=== PATIENT | female | born 1955 | race Caucasian/White ===

== ENCOUNTER → 2019-02-15 | Outpatient (CLI) | payer MEDICARE ==
[~2019-02-15] MED LIST: CEPH500 PO; CIPR500 PO; HYDACE5 PO
[2019-02-16 14:06] LABS: HPV 16 Negative (Negative); HPV 18 Negative (Negative); HPV OTHER HR TYPES Negative (Negative)
== END ==
LOC: LAB SHORT 13:06 → LAB 13:06
PROVIDERS: Nurse Practitioner Family
DX: Z12.4 Encounter for screening for malignant neoplasm of cervix (principal)
CPT/HCPCS: 87624; G0145

== ENCOUNTER 2020-06-27 16:58 | Inpatient (IN) | payer MEDICARE ==
[~2020-06-27] VITALS: Ht 170.2 cm; Wt 106.2 kg
[2020-06-27 17:34] LABS: BASOPHILS ABSOLUTE AUTO 0.04 K/mm3 (0.00-0.23); BASOPHILS PERCENT AUTO 0 % (0-2); EOSINOPHILS PERCENT AUTO 0 % (0-6); Hematocrit 43.8 % (33.0-51.0); Hemoglobin 14.1 g/dL (11.5-16.0); IMMATURE GRAN ABSOLUTE AUTO 0.04 K/mm3 (0.00-0.10); IMMATURE GRAN PERCENT AUTO 0 % (0-1); LYMPHOCYTES ABSOLUTE AUTO 3.27 K/mm3 (0.84-5.20); LYMPHOCYTES PERCENT AUTO 31 % (21-46); MONOCYTES ABSOLUTE AUTO 0.77 K/mm3 (0.16-1.47); MONOCYTES PERCENT AUTO 7 % (4-13); Mean Corpuscular HGB 28.2 pg (26.0-34.0); Mean Corpuscular HGB Conc 32.2 g/dL (31.5-36.5); Mean Corpuscular Volume 88 fL (80-100); Mean Platelet Volume 10.3 fL (9.1-12.4); NEUTROPHILS ABSOLUTE AUTO 6.34 K/mm3 (1.96-9.15); NEUTROPHILS PERCENT AUTO 61 % (41-73); Platelet Count 340 K/mm3 (150-400); RDW Coefficient Variation 13.4 % (11.7-14.2); RDW Standard Deviation 42.8 fL (35.1-46.3); White Blood Cell Count 10.46 K/mm3 (4.00-11.30)
[2020-06-27 17:35] LABS: Calcium, Ionized (POC) 1.18 mmol/L (1.10-1.46); Chloride (POC) 103 mmol/L (98-108); Creatinine (POC) 1.1 mg/dL (0.6-1.0); Glucose (ISTAT POC) 153 mg/dL (70-99); Potassium (POC) 3.5 mmol/L (3.5-5.5); Sodium (POC) 138 mmol/L (135-148); Total CO2 (POC) 21 mmol/L (21-32)
[2020-06-27 17:48] LABS: International Normalized Ratio 0.95; Prothrombin Time Results 10.2 Sec (9.7-11.5)
[2020-06-27 17:59] LABS: Alanine Aminotransfer (ALT/SGP 34 U/L (12-78); Albumin, Blood 3.9 g/dL (3.4-5.0); Albumin/Globulin Ratio 1.1 (0.8-1.8); Alk Phos 119 U/L (50-136); Anion Gap 11 mmol/L (6-16); Aspartate Aminotrans (AST/SGOT 19 U/L (12-37); Bilirubin, Total 0.4 mg/dL (0.1-1.0); Blood Urea Nitrogen 22 mg/dL (8-24); CO2, Blood 24 mmol/L (21-32); Calcium, Blood 9.6 mg/dL (8.5-10.1); Chloride, Blood 107 mmol/L (98-108); Creatinine, Blood 1.05 mg/dL (0.40-1.00); Globulin, Blood 3.4 g/dL (2.2-4.0); Glomerular Filtration Rate 56 (60-); Glucose, Blood 155 mg/dL (70-99); Potassium, Blood 3.6 mmol/L (3.5-5.5); Sodium, Blood 142 mmol/L (136-145); Total Protein, Blood 7.3 g/dL (6.4-8.2); Troponin I <0.015 ng/mL (0.000-0.040)
--- NOTE | 2020-06-27 21:00 | NUR ---
PT TO ICU 13 VIA GURNEY WITH SALES ADMINISTRATOR RN @ [id number], PT ALERT AND ORIENTEDx4, REPORTS A MILD 2/10 CHEST PAIN WHICH IS IMPROVED FROM 10/10 CP ON ARRIVAL TO ED. PT DENIES SOB, O2 SATURATIONS>90% ON RA. TR BAND IN PLACE TO R RADIAL SITE, SITE NON TENDER AND NO HEMATOMA NOTED. CALL PLACED TO DR BRANDON, CLARIFIED LOVENOX AND BRILINTA ORDERS. PT DENIES ANY SIGNIFICANT HEALTH HISTORY AND DOES NOT TAKE ANY MEDICATIONS ON A DAILY/REGULAR BASIS. DR BRANDON TO ROOM, SEE NEW LASIX ORDER.
[2020-06-28 01:40] LABS: BASOPHILS ABSOLUTE AUTO 0.04 K/mm3 (0.00-0.23); BASOPHILS PERCENT AUTO 0 % (0-2); EOSINOPHILS PERCENT AUTO 0 % (0-6); Hematocrit 44.6 % (33.0-51.0); Hemoglobin 14.3 g/dL (11.5-16.0); IMMATURE GRAN ABSOLUTE AUTO 0.08 K/mm3 (0.00-0.10); IMMATURE GRAN PERCENT AUTO 1 % (0-1); LYMPHOCYTES ABSOLUTE AUTO 1.68 K/mm3 (0.84-5.20); LYMPHOCYTES PERCENT AUTO 13 % (21-46); MONOCYTES ABSOLUTE AUTO 0.89 K/mm3 (0.16-1.47); MONOCYTES PERCENT AUTO 7 % (4-13); Mean Corpuscular HGB 28.2 pg (26.0-34.0); Mean Corpuscular HGB Conc 32.1 g/dL (31.5-36.5); Mean Corpuscular Volume 88 fL (80-100); Mean Platelet Volume 10.1 fL (9.1-12.4); NEUTROPHILS ABSOLUTE AUTO 9.84 K/mm3 (1.96-9.15); NEUTROPHILS PERCENT AUTO 79 % (41-73); Platelet Count 317 K/mm3 (150-400); RDW Coefficient Variation 13.5 % (11.7-14.2); RDW Standard Deviation 43.6 fL (35.1-46.3); Red Blood Cell Count 5.07 M/mm3 (3.80-5.20); White Blood Cell Count 12.53 K/mm3 (4.00-11.30)
[2020-06-28 01:59] LABS: Alanine Aminotransfer (ALT/SGP 39 U/L (12-78); Albumin, Blood 3.8 g/dL (3.4-5.0); Alk Phos 105 U/L (50-136); Anion Gap 8 mmol/L (6-16); Aspartate Aminotrans (AST/SGOT 49 U/L (12-37); Bilirubin, Total 0.4 mg/dL (0.1-1.0); Blood Urea Nitrogen 20 mg/dL (8-24); Bun/Creatinine Ratio 20.7 (12.0-20.0); CHOL/HDL RATIO 4.6; CO2, Blood 22 mmol/L (21-32); Calcium, Blood 9.2 mg/dL (8.5-10.1); Chloride, Blood 107 mmol/L (98-108); Cholesterol 223 mg/dL (50-200); Creatinine, Blood 0.97 mg/dL (0.40-1.00); Globulin, Blood 3.8 g/dL (2.2-4.0); Glomerular Filtration Rate >60 (60-); Glucose, Blood 111 mg/dL (70-99); HDL Cholesterol 49 mg/dL (>39); LDL/HDL RATIO 2.9; Low Density Lipoprotein Chol 143 mg/dL (0-110); Potassium, Blood 4.2 mmol/L (3.5-5.5); Sodium, Blood 137 mmol/L (136-145); Total Protein, Blood 7.6 g/dL (6.4-8.2); Triglycerides 153 mg/dL (30-160); Very Low Density Lipoprot Chol 30 mg/dL (6-32)
--- NOTE | 2020-06-28 06:06 | NUR ---
SHIFT SUMMARY PT REMAINS STABLE T/O SHIFT, TR BAND REMOVED AT APPROX 0130, SITE STABLE, NONTENDER WITH NO HEMATOMA, WRIST IMMOBILIZER REMAINS IN PLACE. MONITOR SHOWS SINUS RHYTHM, HR 70'S, BP STABLE, PT REPORTS VERY MILD 1/10 CHEST SORENESS WHICH SHE BELEIVES MAY BE FROM VOMITING/DRY HEAVING PRIOR TO ARRIVAL TO ICU. PT DENIES NAUSEA, TOLERATING PO INTAKE. PT SBA TO BSC, TOLERATING ACTIVITY WELL. PT ANXIOUS FOR DISCHARGE HOME. CALL LIGHT AND BED CONTROLS WITHIN REACH, PT USING INDEPENDENTLY.
--- NOTE | 2020-06-28 08:05 | NUR ---
INITIAL ASSESSMENT PATIENT SITTING QUIETLY IN BED. AT BEDSIDE. PATIENT ALERT AND ORIENTED X 4. PATIENT HAS TEMP OF 99.5 DEGREES FAHRENHEIT. PATIENT STATES SHE HAS SOME SORENESS IN STERNAL AREA BUT THAT IT IS FROM HER VOMITING AND DRY HEAVING YESTERDAY. PATIENT DENIES CHEST PAIN OR PRESSURE. LUNGS CLEAR THROUGHOUT. PATIENT SATTING 90% AND GREATER ON RA. PATIENT STATES SHE HAS OCCASIONAL DRY COUGH, BUT THAT IT IS FROM A DRY THROAT. PATIENT IN SR, HR 70S TO 80S. SBP IN THE 130S. GI WNL. WNL. R RADIAL SITE REMAINS WNL- NO BLEEDING, BRUISING, OR HEMATOMA NOTED. TEGADERM AND ARMBOARD IN PLACE. IVS FLUSHED AND SALINE LOCKED. BED LOW, CALL LIGHT IN REACH. WILL CONTINUE TO MONITOR PATIENT FREQUENTLY THROUGHOUT SHIFT.
--- NOTE | 2020-06-28 11:50 | NUR ---
PATIENT DENIES PAIN. PATIENT HAS TEMP OF 99.6 DEGREES FAHRENHEIT. PATIENT REMAINS SATTING 90% AND GREATER. HR 60S TO 80S. SBP 130S TO 150S. NO OTHER ACUTE CHANGES TO NOTE ON AT THIS TIME.
--- NOTE | 2020-06-28 15:35 | NUR ---
ECHOCARDIOGRAM COMPLETE
--- NOTE | 2020-06-28 16:00 | NUR ---
PATIENT SITTING AND WATCHING TV WITH . PATIENT DENIES PAIN. PATIENT HAS TEMP OF 99.2 DEGREES FAHRENHEIT. HR 60S TO 70S. SBP 130S. RADIAL SITE REMAINS UNCHANGED. NO OTHER ACUTE CHANGES TO NOTE ON AT THIS TIME.
--- NOTE | 2020-06-28 17:59 | NUR ---
SHIFT SUMMARY PATIENT REMAINED ALERT AND ORIENTED X 4. PATIENT DENIES ANY PAIN OR CHEST PRESSURE THIS SHIFT. PATIENT HAD TMAX OF 99.6 DEGREES FAHRENHEIT. PATIENT REMAINED SATTING 90% AND GREATER ON RA. PATIENT REMAINED IN SR. HR 60S TO 80S. SBP 130S TO 150S. GI WNL. WNL. R RADIAL SITE REMAINS WNL; NO BLEEDING, BRUISING, HEMATOMA NOTED. PATIENT HAS BEEN INDEPENDENT IN ROOM ALL DAY. HAS REMAINED IN ROOM WITH PATIENT FOR MOST OF THE DAY. ECHO COMPLETE THIS SHIFT. REPORT GIVEN TO MEDICAL FLOOR NURSE, ROOM 359.
--- NOTE | 2020-06-28 18:03 | NUR ---
PATIENT TRANSFERRED TO MEDICAL FLOOR, ROOM 359. AT SIDE.
--- NOTE | 2020-06-28 19:29 | NUR ---
SHIFT SUMMARY PT ARRIVED FROM ICU AROUND 615PM. INDEP IN ROOM, DENIES PAIN, AT BEDSIDE. AW TELE BOX. REPORT GIVEN TO NIGHT NURSE
--- NOTE | 2020-06-29 03:42 | NUR ---
SHIFT SUMMARY: 64 Y/O OBESE FEMALE RESTED COMFORTABLY ALL SHIFT; DENIES PAIN OR NAUSEA; PTS RIGHT WRIST PUNCTURE WOUND OPEN TO AIR (OPSITE REMOVED BY THIS NURSE) AND WELL APPROXIMATED WITH ZERO S/S INFECTION; TELEMETRY REFLECTS NSR PER BRADY--YARDMASTER; UP AD SANTOS TO BATHROOM; ALERT AND ORIENTED X 4; POSSIBLE DISCHARGE HOME TODAY; VITAL SIGNS STABLE; BED LOW POSITION WITH CALL LIGHT AT SIDE.
[2020-06-29] MEDS ORDERED: ASPI81CH PO (11:08)
[2020-06-29] MEDS ORDERED: Prinivil10 MG PO (11:09)
[2020-06-29] MEDS ORDERED: ATOR40TA PO (11:09)
[2020-06-29] MEDS ORDERED: METO50ER PO (11:09)
[2020-06-29] MEDS ORDERED: TICA90TA PO (11:10)
--- NOTE | 2020-06-29 12:36 | NUR ---
PT DISCHARGED WITH DC INSTRUCTIONS. DIETITIAN SPOKE WITH PT BEFORE DC. AT BEDSIDE AND INVOLVED IN PLAN. W/C ESCORT OUT TO PRIVATE CAR FOR DC. HAS ALL BELONGINGS. RX FAXED TO [facility] ON [address].
== END 2020-06-29 12:24 | disposition home or self-care (01) | DRG 247 ==
LOC: ER 16:58 → ICUW 17:37 → MEDS 06-28 18:09
PROVIDERS: Emergency Medicine; Physician Assistant; ADMIT Internal Medicine Interventional Cardiology
PROC: 4A023N7 Measurement of Cardiac Sampling and Pressure, Left Heart, Percutaneous Approach (ICD-10-PCS; principal; 2020-06-27)
PROC: 027034Z Dilation of Coronary Artery, One Artery with Drug-eluting Intraluminal Device, Percutaneous Approach (ICD-10-PCS; 2020-06-27)
PROC: B2111ZZ Fluoroscopy of Multiple Coronary Arteries using Low Osmolar Contrast (ICD-10-PCS; 2020-06-27)
PROC: B240ZZ3 Ultrasonography of Single Coronary Artery, Intravascular (ICD-10-PCS; 2020-06-27)
DX: I21.02 ST elevation (STEMI) myocardial infarction involving left anterior descending coronary artery (principal); E78.5 Hyperlipidemia, unspecified; I25.10 Atherosclerotic heart disease of native coronary artery without angina pectoris; Z79.82 Long term (current) use of aspirin
CPT/HCPCS: 36415; 71046; 76937; 80047; 80053; 80061; 83036; 83880; 84484; 85014; 85025; 85347; 85610; 92978; 93005; 93010; 93306; 93458; 96374-59; 96375-59; 99152; 99153; 99285-25; A9270; A9270-GY; C1725; C1753; C1769; C1874; C1887; C1894; C9600; C9606; G0008; J1644; J1650; J1940; J2250; J2270; J2405; J3010; J3246; J7030; J7050; Q2038; Q9967

== ENCOUNTER 2020-07-23 08:31 | Day surgery (SDC) | payer MEDICARE ==
[~2020-07-23] VITALS: Ht 170.2 cm; Wt 100.4 kg
[~2020-07-23 08:31] MED LIST changes: +ASPI81CH PO; +ATOR40TA PO; +METO50ER PO; +Prinivil10 MG PO; +TICA90TA PO
--- NOTE | 2020-07-23 13:10 | NUR ---
2 cc air removed from TR band. No bleeding at site.
--- NOTE | 2020-07-23 13:45 | NUR ---
REMAINDER (3 CC) OF AIR REMOVED. NO BLEEDING AT SITE.
--- NOTE | 2020-07-23 15:10 | NUR ---
discharge instructions verbal and writtengivento patient. verbalized understanding. right radial site soft and nontender, TR band removed dressing placed to right radial site with wrist board and arm sling placed to right arm. patient will be following up with cardiac rehab and has appointment with Dr Guerrero. patient transferred to ride via [facility] chair. driving.
== END 2020-07-23 15:42 | disposition home or self-care (01) ==
LOC: MHTC 08:31
PROC: B2101ZZ Fluoroscopy of Single Coronary Artery using Low Osmolar Contrast (ICD-10-PCS; principal; 2020-07-23)
DX: I25.10 Atherosclerotic heart disease of native coronary artery without angina pectoris (principal); I10 Essential (primary) hypertension; I21.3 ST elevation (STEMI) myocardial infarction of unspecified site; K21.9 Gastro-esophageal reflux disease without esophagitis; Z79.82 Long term (current) use of aspirin; Z79.899 Other long term (current) drug therapy; Z87.891 Personal history of nicotine dependence; Z88.0 Allergy status to penicillin; Z88.5 Allergy status to narcotic agent
CPT/HCPCS: 76937; 85347; 93454; 93571; 93572; 99152; 99153; C1769; C1887; C1894; J1644; J2250; J3010; J7030; J7040; J7050; Q9967

== ENCOUNTER 2021-03-24 10:27 | Emergency (ER) | payer OTHER ==
[~2021-03-24] VITALS: Ht 170.2 cm; Wt 81.7 kg
[2021-03-24 14:57] LABS: BASOPHILS ABSOLUTE AUTO 0.01 K/mm3 (0.00-0.23); BASOPHILS PERCENT AUTO 0 % (0-2); EOSINOPHILS PERCENT AUTO 0 % (0-6); Hematocrit 42.1 % (33.0-51.0); Hemoglobin 13.9 g/dL (11.5-16.0); IMMATURE GRAN ABSOLUTE AUTO 0.05 K/mm3 (0.00-0.10); IMMATURE GRAN PERCENT AUTO 1 % (0-1); LYMPHOCYTES ABSOLUTE AUTO 0.97 K/mm3 (0.84-5.20); LYMPHOCYTES PERCENT AUTO 17 % (21-46); MONOCYTES ABSOLUTE AUTO 0.43 K/mm3 (0.16-1.47); MONOCYTES PERCENT AUTO 8 % (4-13); Mean Corpuscular HGB 28.9 pg (26.0-34.0); Mean Corpuscular Volume 88 fL (80-100); Mean Platelet Volume 10.5 fL (9.1-12.4); NEUTROPHILS ABSOLUTE AUTO 4.21 K/mm3 (1.96-9.15); NEUTROPHILS PERCENT AUTO 74 % (41-73); Platelet Count 195 K/mm3 (150-400); RDW Coefficient Variation 13.3 % (11.7-14.2); RDW Standard Deviation 42.9 fL (35.1-46.3); Red Blood Cell Count 4.81 M/mm3 (3.80-5.20); White Blood Cell Count 5.67 K/mm3 (4.00-11.30)
[2021-03-24 15:19] LABS: Alanine Aminotransfer (ALT/SGP 69 U/L (12-78); Albumin, Blood 3.7 g/dL (3.4-5.0); Albumin/Globulin Ratio 0.8 (0.8-1.8); Alk Phos 164 U/L (50-136); Anion Gap 7 mmol/L (6-16); Aspartate Aminotrans (AST/SGOT 50 U/L (12-37); Bilirubin, Total 0.5 mg/dL (0.1-1.0); Blood Urea Nitrogen 18 mg/dL (8-24); Bun/Creatinine Ratio 20.2 (12.0-20.0); CO2, Blood 25 mmol/L (21-32); Calcium, Blood 9.5 mg/dL (8.5-10.1); Chloride, Blood 104 mmol/L (98-108); Creatinine, Blood 0.89 mg/dL (0.40-1.00); Globulin, Blood 4.6 g/dL (2.2-4.0); Glomerular Filtration Rate >60 (60-); Glucose, Blood 112 mg/dL (70-99); Potassium, Blood 3.9 mmol/L (3.5-5.5); Sodium, Blood 136 mmol/L (136-145); Total Protein, Blood 8.3 g/dL (6.4-8.2); Troponin I <0.015 ng/mL (0.000-0.040)
[2021-03-24] MEDS ORDERED: ONDA4ODT MM (16:03)
== END 2021-03-24 17:06 | disposition home or self-care (01) ==
LOC: ER 10:27
PROVIDERS: Physician Assistant
DX: U07.1 COVID-19 (principal); Z88.0 Allergy status to penicillin; Z79.82 Long term (current) use of aspirin
CPT/HCPCS: 36415; 71045; 80053; 83690; 83880; 84484; 85025; 93005; 93010; 96361; 96374; 99285-25; J2405; J7030

== ENCOUNTER → 2021-04-01 | Outpatient (CLI) | payer OTHER ==
[~2021-04-01] MED LIST changes: +ONDA4ODT MM
== END | disposition home or self-care (01) ==
LOC: LAB 11:17 → LAB SHORT 11:17
DX: N39.0 Urinary tract infection, site not specified (principal); R31.9 Hematuria, unspecified
CPT/HCPCS: 87077; 87086; 87186